=== PATIENT | female | born 1960 | race Caucasian/White ===

== ENCOUNTER 2021-07-07 09:00 | Emergency (ER) | payer BC, MEDICARE, SELFPAY ==
--- NOTE | ~2021-07-07 | XR_ITS ---
EXAMINATION: XR ankle RT min 3V INDICATION: Right ankle pain TECHNIQUE: Four views of the right ankle are obtained. COMPARISON: None available FINDINGS: There is mild medial soft tissue swelling of ankle. No acute fracture is identified. Bone a lignment is normal. Surgical changes are noted in the calcaneus and fifth metatarsal. There is a frantz ined screw fragment base of the fifth metatarsal. IMPRESSION: 1. Soft tissue swelling without acute osseous abnormality. Reviewed, dictated and finalized at location A.
--- NOTE | 2021-07-07 09:20 | ED.LOWEXIN ---
HPI - Extremity Injury (Lower) General Chief Complaint: Extremity Problem,Nontraumatic Stated Complaint: Right ankle Pain Time Seen by Provider: 07/07/21 09:42 Source: patient and RN notes reviewed Mode of arrival: ambulatory Limitations: no limitations History of Present Illness HPI Narrative: 60-year-old female presents to the [facility] with complaints of medial right ankle pain since yesterday. Minor swelling medial aspect right ankle swelling. No increased warmth. Mild redness noted over medial malleolus. Full range of motion. no calf tenderness. Patient reports it feels just like when she has a gout flare. When she has gout she can take indomethacin cannot do any other NSAIDs. Related Data Home Medications Medication Instructions Recorded Confirmed allopurinol 100 mg PO DAILY 07/07/21 07/07/21 amitriptyline 75 mg PO DAILY 07/07/21 07/07/21 amlodipine 5 mg PO DAILY 07/07/21 07/07/21 chlorthalidone 25 mg PO DAILY 07/07/21 07/07/21 duloxetine 30 mg PO DAILY 07/07/21 07/07/21 metformin 500 mg PO DIRECTED 07/07/21 07/07/21 piroxicam 10 mg PO DAILY 07/07/21 07/07/21 pregabalin 225 mg PO DAILY 07/07/21 07/07/21 tizanidine 4 mg PO DAILY 07/07/21 07/07/21 topiramate 25 mg PO DAILY 07/07/21 07/07/21 Allergies Allergy/AdvReac Type Severity Reaction Status Date / Time amitriptyline Allergy Mild Rash Unverified 07/07/21 09:28 Cephalosporins Allergy Mild HIVES Unverified 07/07/21 09:28 Quinolones Allergy Mild HIVES Unverified 07/07/21 09:28 rofecoxib Allergy Mild Rash Unverified 07/07/21 09:28 EMYCIN Allergy Mild Rash Uncoded 07/07/21 09:28 MACROLIDES Allergy Mild (ERYTHROMYC Uncoded 07/07/21 09:28 IN) Review of Systems Review of Systems: All systems reviewed & are unremarkable except as noted in HPI and below Constitutional: Constitutional: Reports no additional constitutional complaints Eyes: Eyes: Reports no additional eye complaints ENT: Reports system reviewed and no additional complaints, except as documented Cardiovascular: Cardiovascular: Reports no additional cardiovascular complaints Respiratory: Respiratory: Reports no additional respiratory complaints, Denies cough and Denies dyspnea Gastrointestinal: Gastrointestinal: Reports no additional gastrointestinal complaints and Denies abdominal pain Musculoskeletal: Musculoskeletal: Reports as per HPI, Reports arthralgias (Medial right ankle) and Reports joint swelling (Medial right ankle) Integumentary/Breasts: Skin/Breast: Reports system reviewed and no additional complaints, except as docu Neurologic: Reports system reviewed and no additional complaints, except as documented Psychiatric: Psychiatric: Reports no additional psychiatric complaints Allergic/Immunologic: Allergic/Immunologic: Reports no additional allergic/immunologic complaints PMFSH Past Medical History Medical History (Updated 07/07/21 @ 19:02 by Susan Alfredo APRN) Gout History of high blood pressure Comments At the time of my signature, I reviewed and agree with the nursing past medical, surgical, social, and family history. There is no relevant family history pertinent to the patient complaint. Exam Const: General: healthy appearing, no acute distress and alert Nutritional Appearance: well nourished and obese Orientation/consciousness: patient oriented x3 Limitations: no limitations HENMT: Head: normal to inspection Ears: external ears normal Eyes: Pupils: Equal, round and reactive pupils present Neck: Neck: normal visual inspection, no lymphadenopathy and no meningeal signs Chest: Chest palpation & inspection: normal inspection of the chest Resp: Effort & Inspection: normal respiratory effort Auscultation: clear to auscultation bilaterally Cardio: Rate: regular rate Rhythm: regular rhythm Skin: General skin exam: normal color Rashes: no rashes Neuro: General: patient oriented x3, moves all extremities, no meningeal signs and no focal motor deficits C
[2021-07-07 09:27] VITALS: BP 132/64; PULSE 83; RESP 18; TEMP 36.7; O2SAT 94
== END 2021-07-07 10:22 | disposition home or self-care (01) ==
PROVIDERS: Emergency Provider Nurse Practitioner
DX: M25.571 Pain in right ankle and joints of right foot (principal); M10.9 Gout, unspecified; I10 Essential (primary) hypertension
CPT/HCPCS: 73610; 99213; G0463